=== PATIENT | female | born 1965 | race African-American/Black ===

== ENCOUNTER 2018-06-04 18:49 | Emergency (ER) | payer BC, OTHER ==
--- NOTE | 2018-06-04 20:55 | ER ---
Nurse's Notes [facility] Name: Ara Bolton Age: 53 yrs Sex: Female : 1965 Arrival Date: 06/04/2018 Time: 18:52 Bed 20 Private MD: Dell Little Diagnosis: Sinus Congestion Presentation: 06/04 19:05 Presenting complaint: Patient states: Reports dizziness with eye redness and sinus aj drainage since Saturday. Seen by PCP DX with allergies and referred to ENT. Seen ENT today. Patient states that she doesn't feel better and none of the doctors gave her anything. Transition of care: patient was not received from another setting of care. Onset of symptoms was May 30, 2018. Risk Assessment: Do you want to hurt yourself or someone else? Patient reports no desire to harm self or others. Initial Sepsis Screen: Does the patient meet any 2 criteria? No. Patient's initial sepsis screen is negative. Does the patient have a suspected source of infection? No. Patient's initial sepsis screen is negative. Care prior to arrival: None. 19:05 Method Of Arrival: Ambulatory aj 19:05 Acuity: RONNY 4 aj Triage Assessment: 19:09 Headache History: The patient has had previous headaches. General: Appears in no aj apparent distress. comfortable, Behavior is calm, cooperative, appropriate for age. Pain: Denies pain. EENT: Reports nasal congestion nasal discharge redness to eyes. Neuro: Level of Consciousness is awake, alert, obeys commands, Oriented to person, place, time, situation, Appropriate for age Reports headache. Respiratory: Airway is patent Respiratory effort is even, unlabored, Respiratory pattern is regular, symmetrical. Derm: Skin is intact, is healthy with good turgor, Skin is pink, warm \T\ dry. normal. 20:00 Pain: Pain currently is 0 out of 10 on a pain scale. Pain began gradually, Also bs1 complains of inability to work, inability to concentrate. 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 - Social history:: Smoking status: Patient/guardian denies using tobacco. - Ebola Screening: : Patient negative for fever greater than or equal to 101.5 degrees Fahrenheit, and additional compatible Ebola Virus Disease symptoms Patient denies exposure to infectious person Patient denies travel to an Ebola-affected area in the 21 days before illness onset No symptoms or risks identified at this time. Screenin:59 Abuse screen: Denies threats or abuse. Denies injuries from another. Nutritional aj screening: No deficits noted. Tuberculosis screening: No symptoms or risk factors identified. Fall Risk None identified. Assessment: 19:31 General: Appears in no apparent distress. uncomfortable, well groomed, Behavior is bs1 calm, cooperative, appropriate for age. Pain: Denies pain. Neuro: Level of Consciousness is awake, alert, obeys commands, Oriented to person, place, time, situation, Appropriate for age Pulp Screen Operator are equal bilaterally Reports dizziness. Cardiovascular: Denies chest pain, shortness of breath, Heart tones S1 S2 present Capillary refill < 3 seconds Patient's skin is warm and dry. Respiratory: Airway is patent Trachea midline Respiratory effort is even, unlabored, Respiratory pattern is regular, symmetrical, Breath sounds are clear bilaterally. GI: No signs and/or symptoms were reported involving the gastrointestinal system. : No signs and/or symptoms were reported regarding the genitourinary system. EENT: Reports nasal discharge. Derm: Skin is intact. Musculoskeletal: Circulation, motion, and sensation intact. Capillary refill < 3 seconds, Range of motion: intact in all extremities. 20:45 Reassessment: Patient appears in no apparent distress at this time. Patient and/or bs1 family updated on plan of care and expected duration. Pain level reassessed. Patient is alert, oriented x 3, equal unlabored respirations, skin warm/dry/pink. Informed of POC. Vital Signs: 19:09 BP 138 / 71; Pulse 89; Resp 20; Temp 97.8; Pulse Ox 98% on R/A; Weight 83.91 kg; Height aj 5 ft. 8 in. (172.72 cm); 20:10 BP 128 / 72; Pulse 81; Resp 18; Pulse Ox 99% on R/A; Pain 0/10; bs1 19:09 Body Mass Index 28.13 (83.91 kg, 172.72 cm) ED Course: 18:52 Patient arrived in ED. rg4 18:52 Dell Little MD is Private Physician. rg4 19:07 Triage completed. aj 19:09 Arm band placed on right wrist. Patient placed in an exam room. aj 19:18 Erin Stinson, RN is Primary Nurse. bs1 20:32 Tiffany Bañuelos FNP-C is PHCP. kb 20:33 Jordan Solis MD is Attending Physician. kb 20:59 Patient has correct armband on for positive identification. aj 20:59 No provider procedures requiring assistance completed. Patient did not have IV access aj during this emergency room visit. Administered Medications: No medications were administered Outcome: 20:55 Discharge ordered by MD. kb 20:59 Discharged to home ambulatory. aj 20:59 Condition: good 20:59 Discharge instructions given to patient, Instructed on discharge instructions, follow up and referral plans. Demonstrated understanding of instructions, follow-up care. 21:00 Patient left the ED. aj Signatures: Tiffany Bañuelos FNP-C FNP-Annette Romero, RN Beronica Chvaez 4 Erin Stinson, FELICITA RN bs1
--- NOTE | 2018-06-04 20:55 | EDPHYS ---
Physician Documentation [facility] Name: Ara Bolton Age: 53 yrs Sex: Female : 1965 Arrival Date: 06/04/2018 Time: 18:52 Bed 20 Private MD: Dell Little ED Physician Jordan Solis HPI: 06/04 21:01 This 53 yrs old Black Female presents to ER via Ambulatory with complaints of kb Dizziness, Sinus Pain. 21:01 The patient has experienced similar episodes in the past, chronically. The patient has kb been recently seen by a physician: Dr. Little 6 day(s) ago. 21:02 The patient is experiencing redness, The patient sustained None. to both eyes, caused kb by an unknown mechanism. Onset: The symptoms/episode began/occurred "a long time ago". Duration: the symptoms are intermittent. Aggravated by nothing. Alleviated by allergy or steroid eye drops. Associated signs and symptoms: Pertinent positives: dizziness, runny nose, Pertinent negatives: chills, ear ache, fever, headache. Patient does not utilize any form of vision correction. Severity of symptoms: At their worst the symptoms were moderate in the emergency department the symptoms have improved. The patient has been recently seen by a physician: an ENT specialist, earlier today, with similar presenting complaints. Pt states she has red eyes every morning and has to take eye drops to make the redness go away. States she takes so many drops and they don't drain so it builds up fluid so her head fills full. States the eye drops make the fluid drain through her nose, but then her nose runs. Also reports fullness in both ears. Went to Dr Little on Saturday and was given a steroid. Today went to ENT and was given magnesium to take. . 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 - Social history:: Smoking status: Patient/guardian denies using tobacco. - Ebola Screening: : Patient negative for fever greater than or equal to 101.5 degrees Fahrenheit, and additional compatible Ebola Virus Disease symptoms Patient denies exposure to infectious person Patient denies travel to an Ebola-affected area in the 21 days before illness onset No symptoms or risks identified at this time. ROS: 20:57 Constitutional: Negative for fever, chills, and weight loss, Cardiovascular: Negative kb for chest pain, palpitations, and edema, Respiratory: Negative for shortness of breath, cough, wheezing, and pleuritic chest pain, Abdomen/GI: Negative for abdominal pain, nausea, vomiting, diarrhea, and constipation, Back: Negative for injury and pain, : Negative for injury, bleeding, discharge, and swelling, MS/Extremity: Negative for injury and deformity, Skin: Negative for injury, rash, and discoloration. 20:57 ENT: Positive for sinus congestion. 20:57 Neuro: Positive for dizziness. 20:57 Eyes: Positive for redness. kb Exam: 20:57 Constitutional: This is a well developed, well nourished patient who is awake, alert, kb and in no acute distress. Head/Face: Normocephalic, atraumatic. Eyes: Pupils equal round and reactive to light, extra-ocular motions intact. Lids and lashes normal. Conjunctiva and sclera are non-icteric and not injected. Cornea within normal limits. Periorbital areas with no swelling, redness, or edema. ENT: Nares patent. No nasal discharge, no septal abnormalities noted. Tympanic membranes are normal and external auditory canals are clear. Oropharynx with no redness, swelling, or masses, exudates, or evidence of obstruction, uvula midline. Mucous membranes moist. Chest/axilla: Normal chest wall appearance and motion. Nontender with no deformity. No lesions are appreciated. Cardiovascular: Regular rate and rhythm with a normal S1 and S2. No gallops, murmurs, or rubs. Normal PMI, no JVD. No pulse deficits. Respiratory: Lungs have equal breath sounds bilaterally, clear to auscultation and percussion. No rales, rhonchi or wheezes noted. No increased work of breathing, no retractions or nasal flaring. Abdomen/GI: Soft, non-tender, with normal bowel sounds. No distension or tympany. No guarding or rebound. No evidence of tenderness throughout. Skin: Warm, dry with normal turgor. Normal color with no rashes, no lesions, and no evidence of cellulitis. MS/ Extremity: Pulses equal, no cyanosis. Neurovascular intact. Full, normal range of motion. Neuro: Awake and alert, GCS 15, oriented to person, place, time, and situation. Cranial nerves II-XII grossly intact. Motor strength 5/5 in all extremities. Sensory grossly intact. Cerebellar exam normal. Normal gait. Vital Signs: 19:09 BP 138 / 71; Pulse 89; Resp 20; Temp 97.8; Pulse Ox 98% on R/A; Weight 83.91 kg; Height aj 5 ft. 8 in. (172.72 cm); 20:10 BP 128 / 72; Pulse 81; Resp 18; Pulse Ox 99% on R/A; Pain 0/10; bs1 19:09 Body Mass Index 28.13 (83.91 kg, 172.72 cm) aj MDM: 20:33 Patient medically screened. kb 20:58 Data reviewed: vital signs, nurses notes. Data interpreted: Pulse oximetry: on room air kb is 98 %. Interpretation: normal. Counseling: I had a detailed discussion with the patient and/or guardian regarding: the historical points, exam findings, and any diagnostic results supporting the discharge/admit diagnosis, the need for outpatient follow up, an ENT specialist, an opthalmologist, to return to the emergency department if symptoms worsen or persist or if there are any questions or concerns that arise at home. Administered Medications: No medications were administered Disposition: 06/05 06:42 Co-signature as Attending Physician, Jordan Solis MD I agree with the assessment and tiffany plan of care. Disposition: 06/04/18 20:55 Discharged to Home. Impression: Sinus Congestion. - Condition is Stable. - Discharge Instructions: Sinus Rinse, [id number]. - Medication Reconciliation Form, Thank You Letter, Antibiotic Education, Prescription Opioid Use form. - Follow up: Emergency Department; When: As needed; Reason: Worsening of condition. Follow up: Private Physician; When: 2 - 3 days; Reason: Recheck today's complaints, Continuance of care, Re-evaluation by your physician. Signatures: Tiffany Bañuelos FNP-C FNP-Ckb Myers, Amanda, RN RN aj Anderson, Corey, MD MD cha Corrections: (The following items were deleted from the chart) 06/04 21:00 20:55 06/04/2018 20:55 Discharged to Home. Impression: Sinus Congestion. Condition is aj Stable. Forms are Medication Reconciliation Form, Thank You Letter, Antibiotic Education, Prescription Opioid Use. Follow up: Emergency Department; When: As needed; Reason: Worsening of condition. Follow up: Private Physician; When: 2 - 3 days; Reason: Recheck today's complaints, Continuance of care, Re-evaluation by your physician. kb
== END 2018-06-04 21:00 | disposition home or self-care (01) ==
LOC: ER 18:49
DX: R09.81 Nasal congestion (principal); I10 Essential (primary) hypertension; J30.2 Other seasonal allergic rhinitis
CPT/HCPCS: 99281

== ENCOUNTER 2019-01-13 17:39 | Emergency (ER) | payer BC ==
--- OUTSIDE RECORDS SUMMARY | 2019-01-13 17:40 | XMS REPORT ---
:1965 [facility] Address [address] [place] [address] Care Team Providers Name Role Phone Unavailable Unavailable Unavailable Payers Payer Name Policy Type Policy Number Effective Date Expiration Date Problems This patient has no known problems. Allergies, Adverse Reactions, Alerts This patient has no known allergies or adverse reactions. Medications This patient has no known medications.
--- NOTE | 2019-01-13 20:40 | ER ---
Nurse's Notes [facility] Name: Ara Bolton Age: 53 yrs Sex: Female : 1965 Arrival Date: 01/13/2019 Time: 17:39 Bed Treatment Private MD: Dell Little Diagnosis: Gout;Pain in left wrist Presentation: 01/13 17:56 Presenting complaint: Patient states: yesterday my L hand started to swell and its hj getting bigger, pain is 10/10; took tylenol/ advil around 3pm; denies trauma to the area;. Transition of care: patient was not received from another setting of care. Onset of symptoms was January 13, 2019. Risk Assessment: Do you want to hurt yourself or someone else? Patient reports no desire to harm self or others. Initial Sepsis Screen: Does the patient meet any 2 criteria? No. Patient's initial sepsis screen is negative. Does the patient have a suspected source of infection? No. Patient's initial sepsis screen is negative. Care prior to arrival: None. 17:56 Method Of Arrival: Ambulatory 17:56 Acuity: RONNY 4 Triage Assessment: 17:58 General: Appears in no apparent distress. uncomfortable, Behavior is calm, cooperative, hj appropriate for age. Pain: Complains of pain in left hand. 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 - Social history:: Smoking status: Patient/guardian denies using tobacco, Patient/guardian denies using alcohol. - Ebola Screening: : Patient negative for fever greater than or equal to 101.5 degrees Fahrenheit, and additional compatible Ebola Virus Disease symptoms Patient denies exposure to infectious person Patient denies travel to an Ebola-affected area in the 21 days before illness onset. Screenin:59 Abuse screen: Denies threats or abuse. Denies injuries from another. Nutritional hj screening: No deficits noted. Tuberculosis screening: No symptoms or risk factors identified. Fall Risk None identified. Assessment: 19:46 General: Appears in no apparent distress. uncomfortable, Behavior is calm, cooperative, rr5 appropriate for age. Pain: Complains of pain in left hand Pain does not radiate. Pain currently is 10 out of 10 on a pain scale. Quality of pain is described as aching, Pain began gradually, Is intermittent. Neuro: Level of Consciousness is awake, alert, obeys commands, Oriented to person, place, time, situation, Appropriate for age. Cardiovascular: Capillary refill < 3 seconds Patient's skin is warm and dry. Respiratory: Airway is patent Respiratory effort is even, unlabored, Respiratory pattern is regular, symmetrical. GI: No signs and/or symptoms were reported involving the gastrointestinal system. : No signs and/or symptoms were reported regarding the genitourinary system. EENT: No signs and/or symptoms were reported regarding the EENT system. 20:37 Reassessment: Patient appears in no apparent distress at this time. Patient is alert, rr5 oriented x 3, equal unlabored respirations, skin warm/dry/pink. medication given for the pain. 21:25 Reassessment: Patient appears in no apparent distress at this time. Patient is alert, rr5 oriented x 3, equal unlabored respirations, skin warm/dry/pink. discharge instruction given and explained without complaints made. Patient states feeling better. Patient states symptoms have improved. Vital Signs: 17:59 BP 128 / 93; Pulse 69; Resp 18; Temp 97.4(TE); Pulse Ox 100% on R/A; Weight 81.65 kg; hj Height 5 ft. 8 in. (172.72 cm); Pain 10/10; 19:30 BP 117 / 82; Pulse 76; Resp 16; Temp 98.3; Pulse Ox 100% ; rr5 20:20 BP 119 / 76; Pulse 71; Resp 17; Pulse Ox 98% ; rr5 21:20 BP 115 / 80; Pulse 70; Resp 17; Pulse Ox 99% ; rr5 17:59 Body Mass Index 27.37 (81.65 kg, 172.72 cm) ED Course: 17:39 Patient arrived in ED. as 17:39 Dell Little MD is Private Physician. as 17:57 Triage completed. hj 17:59 Arm band placed on right wrist. hj 18:00 Patient has correct armband on for positive identification. Bed in low position. Call hj light in reach. Side rails up X 1. Adult w/ patient. 19:45 Rafiq Baum, RN is Primary Nurse. rr5 20:05 Pablo Waller MD is Attending Physician. ps1 20:38 Dell Little MD is Referral Physician. ps1 21:30 No provider procedures requiring assistance completed. Patient did not have IV access rr5 during this emergency room visit. Administered Medications: 20:35 Drug: Decadron 10 mg Route: IM; Site: left gluteus; rr5 21:26 Follow up: Response: No adverse reaction rr5 20:37 Drug: TORadol 30 mg Route: IM; Site: right gluteus; rr5 21:26 Follow up: Response: No adverse reaction rr5 Outcome: 20:39 Discharge ordered by MD. ps1 21:30 Discharged to home ambulatory. rr5 21:30 Condition: stable 21:30 Discharge instructions given to patient, Instructed on discharge instructions, follow up and referral plans. medication usage, Demonstrated understanding of instructions, follow-up care, medications, Prescriptions given X 2. 21:36 Patient left the ED. rr5 Signatures: Radha Solano Henry, RN RN Pablo Waller MD MD ps1 Rafiq Baum, FELICITA RN rr5 Corrections: (The following items were deleted from the chart) 18:00 17:59 Pulse 69bpm; Resp 18bpm; Pulse Ox 100% RA; Temp 97.4F Temporal; 81.65 kg; Height hj 5 ft. 8 in.; BMI: 27.3; Pain 10/10; hj
--- NOTE | 2019-01-13 20:40 | EDPHYS ---
Physician Documentation [facility] Name: Ara Bolton Age: 53 yrs Sex: Female : 1965 Arrival Date: 01/13/2019 Time: 17:39 Bed Treatment Private MD: Dell Little ED Physician Pablo Waller HPI: 01/13 20:34 This 53 yrs old Black Female presents to ER via Ambulatory with complaints of Hand ps1 Swelling. 20:34 patient presenting with 2 days of left hand swelling. Pain is localized to radial ps1 aspect of wrist and hand. Pain rated as moderate to severe with palpation. Appears c/w gouty arthritis. States that she does not drink but does eat red meat. Additionally has been undergoing laser fat treatment of the abdomen. No fever, chills, or erythematous changes c/w cellulitis. 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 - Social history:: Smoking status: Patient/guardian denies using tobacco, Patient/guardian denies using alcohol. - Ebola Screening: : Patient negative for fever greater than or equal to 101.5 degrees Fahrenheit, and additional compatible Ebola Virus Disease symptoms Patient denies exposure to infectious person Patient denies travel to an Ebola-affected area in the 21 days before illness onset. ROS: 20:34 Constitutional: Negative for fever, chills, and weight loss, Eyes: Negative for injury, ps1 pain, redness, and discharge, Cardiovascular: Negative for chest pain, palpitations, and edema, Respiratory: Negative for shortness of breath, cough, wheezing, and pleuritic chest pain, Abdomen/GI: Negative for abdominal pain, nausea, vomiting, diarrhea, and constipation, Neuro: Negative for headache, weakness, numbness, tingling, and seizure, Psych: Negative for depression, anxiety, suicide ideation, homicidal ideation, and hallucinations. 20:34 MS/extremity: Positive for pain, swelling, tenderness. Exam: 20:34 Constitutional: This is a well developed, well nourished patient who is awake, alert, ps1 and in no acute distress. Head/Face: Normocephalic, atraumatic. Eyes: Pupils equal round and reactive to light, extra-ocular motions intact. Lids and lashes normal. Conjunctiva and sclera are non-icteric and not injected. Neck: Trachea midline, no thyromegaly or masses palpated, and no cervical lymphadenopathy. Supple, full range of motion without nuchal rigidity, or vertebral point tenderness. No Meningismus. Chest/axilla: Normal chest wall appearance and motion. Nontender with no deformity. No lesions are appreciated. Cardiovascular: Regular rate and rhythm. No gallops, murmurs, or rubs. Normal PMI, no JVD. No pulse deficits. Respiratory: Lungs have equal breath sounds bilaterally, clear to auscultation and percussion. No rales, rhonchi or wheezes noted. No increased work of breathing, no retractions or nasal flaring. Skin: Warm, dry with normal turgor. Normal color with no rashes, no lesions, and no evidence of cellulitis. 20:34 Skin: Appearance: normal except for affected area, Color: erythematous, Temperature: warm, swelling, noted on the left hand. Vital Signs: 17:59 BP 128 / 93; Pulse 69; Resp 18; Temp 97.4(TE); Pulse Ox 100% on R/A; Weight 81.65 kg; hj Height 5 ft. 8 in. (172.72 cm); Pain 10/10; 19:30 BP 117 / 82; Pulse 76; Resp 16; Temp 98.3; Pulse Ox 100% ; rr5 20:20 BP 119 / 76; Pulse 71; Resp 17; Pulse Ox 98% ; rr5 21:20 BP 115 / 80; Pulse 70; Resp 17; Pulse Ox 99% ; rr5 17:59 Body Mass Index 27.37 (81.65 kg, 172.72 cm) MDM: 20:17 Patient medically screened. ps1 01/13 19:33 Order name: Urine Dipstick--Ancillary (enter results); Complete Time: 21:25 ar5 01/13 19:33 Order name: Urine --Ancillary (enter results); Complete Time: 21:25 ar5 01/13 18:01 Order name: Urine Dipstick-Ancillary (obtain specimen); Complete Time: 19:45 hj 01/13 18:01 Order name: Urine Test (obtain specimen); Complete Time: 19:45 Administered Medications: 20:35 Drug: Decadron 10 mg Route: IM; Site: left gluteus; rr5 21:26 Follow up: Response: No adverse reaction rr5 20:37 Drug: TORadol 30 mg Route: IM; Site: right gluteus; rr5 21:26 Follow up: Response: No adverse reaction rr5 Disposition: 01/13/19 20:39 Discharged to Home. Impression: Gout, Pain in left wrist. - Condition is Stable. - Discharge Instructions: Joint Pain, Gout. - Prescriptions for indomethacin 50 mg Oral capsule - take 1 capsule by ORAL route 3 times per day with food; 21 capsule. Medrol ([place]) 4 mg Oral Tablets, Dose Pack - take 1 tablet by ORAL route as directed - follow package instructions; 1 packet. - Medication Reconciliation Form, Thank You Letter, Antibiotic Education, Prescription Opioid Use form. - Follow up: Dell Little MD; When: 48 Hours; Reason: Recheck today's complaints, Continuance of care. Follow up: Emergency Department; When: As needed; Reason: Fever > 102 F, Worsening of condition. - Problem is new. - Symptoms are unchanged. Signatures: Dispatcher [employer] EDMS Erik Rosenthal RN RN hj Pablo Waller MD MD ps1 Rafiq Baum RN RN rr5 Corrections: (The following items were deleted from the chart) 20:38 20:34 patient presenting with 2 days of right hand swelling. Pain is localized to ulnar ps1 aspect of wrist and hand. Pain rated as moderate to severe with palpation. Appears c/w gouty arthritis. States that she does not drink but does eat red meat. Additionally has been undergoing laser fat treatment of the abdomen. No fever, chills, or erythematous changes c/w cellulitis. ps1 21:36 20:39 01/13/2019 20:39 Discharged to Home. Impression: Gout; Pain in left wrist. rr5 Condition is Stable. Forms are Medication Reconciliation Form, Thank You Letter, Antibiotic Education, Prescription Opioid Use. Follow up: Dell Little; When: 48 Hours; Reason: Recheck today's complaints, Continuance of care. Follow up: Emergency Department; When: As needed; Reason: Fever > 102 F, Worsening of condition. Problem is new. Symptoms are unchanged. ps1
[2019-01-13] MEDS ORDERED: DEXAMETHASONE 10 MG/ML VIAL ONE (20:46)
[2019-01-13] MEDS ORDERED: KETOROLAC 30 MG/ML INJ ONE (20:47)
[2019-01-13 21:14] LABS: Urine Blood 1+ (NEG); Urine Glucose NEGATIVE (NEG); Urine Protein NEGATIVE (NEG); Urine Specific Gravity 1.015 (1.005-1.030)
== END 2019-01-13 21:36 | disposition home or self-care (01) ==
LOC: ER 17:39
DX: M10.9 Gout, unspecified (principal); M25.532 Pain in left wrist; I10 Essential (primary) hypertension
CPT/HCPCS: 81003; 81025; 96372; 99283; J1100

== ENCOUNTER 2019-10-27 08:00 | Emergency (ER) | payer BC ==
--- OUTSIDE RECORDS SUMMARY | 2019-10-27 08:02 | XMS REPORT ---
:1965 Author Organization [facility] Address [address] [place] [address] Care Team Providers Name Role Phone Unavailable Unavailable Unavailable Payers Payer Name Policy Type Policy Number Effective Date Expiration Date Problems This patient has no known problems. Allergies, Adverse Reactions, Alerts This patient has no known allergies or adverse reactions. Medications This patient has no known medications.
[2019-10-27] MEDS ORDERED: KETOROLAC 30 MG/ML INJ ONE (08:33)
[2019-10-27] MEDS ORDERED: DIPHENHYDRAMINE 50 MG/ML VIAL ONE (08:33)
[2019-10-27] MEDS ORDERED: METOCLOPRAMIDE 10 MG/2mL INJ ONE (08:33)
[2019-10-27] MEDS ORDERED: ONDANSETRON 4 MG/2 ML VIAL ONE (08:33)
--- NOTE | 2019-10-27 08:55 | RAD REPORT ---
EXAM DESCRIPTION: CT - Head C Spine Mpr Wo Con - 10/27/2019 8:42 am CLINICAL HISTORY: Left arm radiculopathy. Head and neck pain COMPARISON: None. TECHNIQUE: Computed axial tomography of the head and cervical spine was obtained. Sagittal and coronal reconstruction was performed. All CT scans are performed using dose optimization technique as appropriate and may include automated exposure control or mA/KV adjustment according to patient size. FINDINGS: An intracranial bleed is not seen. The ventricles are normal in caliber. An extra-axial fl uid collection is not noted.Fluid within the visualized sinuses and mastoids is not seen A cervical fracture is not visualized. No dislocation is noted. There is loss of the normal lordosis of the cervical spine perhaps secondary to muscle spasm. A large bulging disc/disc herniation is not seen although evaluation is limited on CAT scan. IMPRESSION: No acute intracranial abnormality is seen. A cervical fracture is not visualized. If the patient continues to have symptoms to suggest intracra nial /spinal cord/ spinal canal pathology then MRI would be recommended
[2019-10-27 08:58] LABS: BUN Blood Urea Nitrogen 17 mg/dL (7-18); Bicarbonate 25 mmol/L (21-32); Glucose Level 98 mg/dL (74-106); Potassium 3.7 mmol/L (3.5-5.1); Sodium Level 140 mmol/L (136-145)
[2019-10-27 09:00] LABS: Basophils % 0.6 % (0-1.3); Hematocrit 39.5 % (36.0-45.0); Lymphocytes % 16.3 % (15.3-44.8); MPV 9.8 fL (7.6-11.3); RBC Red Blood Cell Count 5.03 M/uL (3.86-4.86)
--- NOTE | 2019-10-27 09:59 | ER ---
Nurse's Notes [facility] Name: Ara Bolton Age: 54 yrs Sex: Female : 1965 Arrival Date: 10/27/2019 Time: 08:02 Bed 5 Private MD: Dell Little Diagnosis: Headache;Left Upper Extremity Pain Presentation: 10/27 08:10 Presenting complaint: Patient states: migraine started 0300 this morning, vomited this iw morning on way to work, headache is at top of head and radiates to neck, also has pain to left arm for a few days pain is constant from bicep to hand, +hx of migraines. Transition of care: patient was not received from another setting of care. Onset of symptoms was October 27, 2019. Risk Assessment: Do you want to hurt yourself or someone else? Patient reports no desire to harm self or others. Initial Sepsis Screen: Does the patient meet any 2 criteria? No. Patient's initial sepsis screen is negative. Does the patient have a suspected source of infection? No. Patient's initial sepsis screen is negative. Care prior to arrival: None. 08:10 Method Of Arrival: Ambulatory iw 08:10 Acuity: RONNY 3 iw Triage Assessment: 09:36 Headache History: The patient has had previous headaches. General: Appears in no mg2 apparent distress. comfortable, Behavior is calm, cooperative. Pain: Pain began gradually, Also complains of no other associated symptoms. Pain: Complains of pain in head. 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 - Social history:: Smoking status: Patient/guardian denies using tobacco. - Ebola Screening: : Patient negative for fever greater than or equal to 101.5 degrees Fahrenheit, and additional compatible Ebola Virus Disease symptoms Patient denies exposure to infectious person Patient denies travel to an Ebola-affected area in the 21 days before illness onset No symptoms or risks identified at this time. Screenin:20 Abuse screen: Denies threats or abuse. Nutritional screening: No deficits noted. aa5 Tuberculosis screening: No symptoms or risk factors identified. Fall Risk None identified. Assessment: 08:15 General: Appears in no apparent distress. Behavior is calm, cooperative. Pain: Pain hb currently is 10 out of 10 on a pain scale. Neuro: Level of Consciousness is awake, alert, obeys commands, Oriented to person, place, time, situation, Reports headache in right. Cardiovascular: Capillary refill < 3 seconds Patient's skin is warm and dry. Respiratory: Airway is patent Respiratory effort is even, unlabored, Respiratory pattern is regular, symmetrical. GI: No signs and/or symptoms were reported involving the gastrointestinal system. : No signs and/or symptoms were reported regarding the genitourinary system. EENT: No signs and/or symptoms were reported regarding the EENT system. Derm: Skin is pink, warm \T\ dry. Musculoskeletal: No signs and/or symptoms reported regarding the musculoskeletal system. 08:20 General: Appears uncomfortable, Behavior is calm, cooperative. Pain: Complains of pain aa5 in top of head and left arm Pain radiates to right base of the skull Pain currently is 8 out of 10 on a pain scale. Quality of pain is described as aching, throbbing, Is continuous. 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 Speech is normal, Facial symmetry appears normal, Pupils are PERRLA, Reports headache. Cardiovascular: Heart tones S1 S2 present Rhythm is regular. Respiratory: Airway is patent Respiratory effort is even, unlabored, Respiratory pattern is regular, symmetrical. GI: Abdomen is round Bowel sounds present X 4 quads. Abd is soft and non tender X 4 quads. Reports nausea. : No signs and/or symptoms were reported regarding the genitourinary system. EENT: No signs and/or symptoms were reported regarding the EENT system. Derm: Skin is dry, Skin is normal, Skin temperature is warm. Musculoskeletal: Range of motion: intact in all extremities. 08:45 Reassessment: Pt back from CT . aa5 09:00 Reassessment: Patient appears in no apparent distress at this time. Patient and/or hb family updated on plan of care and expected duration. Pain level reassessed. Patient is alert, oriented x 3, equal unlabored respirations, skin warm/dry/pink. 09:36 Reassessment: Patient appears in no apparent distress at this time. Patient and/or mg2 family updated on plan of care and expected duration. Pain level reassessed. Patient is alert, oriented x 3, equal unlabored respirations, skin warm/dry/pink. Vital Signs: 08:14 BP 144 / 89; Pulse 78; Resp 16; Temp 98.3; Pulse Ox 100% on R/A; Weight 77.11 kg; iw Height 5 ft. 8 in. (172.72 cm); Pain 8/10; 09:00 BP 136 / 86; Pulse 75; Resp 14; Pulse Ox 100% on R/A; hb 10:07 BP 129 / 78; Pulse 88; Resp 18; Temp 98; Pulse Ox 100% on R/A; Pain 2/10; mg2 08:14 Body Mass Index 25.85 (77.11 kg, 172.72 cm) iw ED Course: 08:02 Patient arrived in ED. ag5 08:02 Dell Little MD is Private Physician. ag5 08:03 Esdras Vargas MD is Attending Physician. kdr 08:08 Ebony Cheng, FELICITA is Primary Nurse. aa5 08:13 Triage completed. iw 08:14 Arm band placed on. iw 08:20 Patient has correct armband on for positive identification. Bed in low position. Call aa5 light in reach. Side rails up X 1. Pulse ox on. NIBP on. 08:28 Initial lab(s) drawn, by me, sent to lab. Inserted saline lock: 20 gauge in right aa5 antecubital area, using aseptic technique. Blood collected. 08:42 CT Head C Spine In Process Unspecified. EDMS 09:37 No provider procedures requiring assistance completed. mg2 09:58 Dell Little MD is Referral Physician. kdr 10:08 IV discontinued, intact, bleeding controlled, No redness/swelling at site. Pressure mg2 dressing applied. Administered Medications: 08:37 Drug: TORadol - Ketorolac 15 mg Route: IVP; Site: right antecubital; hb 09:22 Follow up: Response: No adverse reaction mg2 08:37 Drug: Benadryl 25 mg Route: IVP; Site: right antecubital; hb 09:21 Follow up: Response: No adverse reaction mg2 08:37 Drug: Reglan 10 mg Route: IVP; Site: right antecubital; hb 09:20 Follow up: Response: No adverse reaction mg2 08:37 Drug: Decadron - Dexamethasone 10 mg Route: IVP; Site: right antecubital; hb 09:20 Follow up: Response: No adverse reaction mg2 Outcome: 09:59 Discharge ordered by . kdr 10:07 Discharged to home ambulatory. mg2 10:07 Condition: stable 10:07 Discharge instructions given to patient, Instructed on discharge instructions, follow up and referral plans. medication usage, Demonstrated understanding of instructions, follow-up care, medications, Prescriptions given X 2. 10:08 Patient left the ED. mg2 Signatures: Dispatcher [employer] EDMS Esdras Vargas MD MD kdr Yudy Garcia RN RN Ebony Cheng RN RN aa5 Yesica Nunez RN RN hb Gardose, Michele, RN RN mg2 Raquel Dye ag5
--- NOTE | 2019-10-27 10:00 | EDPHYS ---
Physician Documentation [facility] Name: Ara Bolton Age: 54 yrs Sex: Female : 1965 Arrival Date: 10/27/2019 Time: 08:02 Bed 5 Private MD: Dell Little ED Physician Esdras Vargas HPI: 10/27 08:22 This 54 yrs old Black Female presents to ER via Ambulatory with complaints of Headache, kdr Arm Pain, Vomiting. 08:22 The patient complains of pain to the left frontal area, left side of the back of head, kdr left occipital area, left base of the skull, right frontal area, right side of the back of head, right occipital area and right base of the skull. The patient describes the headache as aching, constant, unrelenting. Onset: The symptoms/episode began/occurred suddenly, today, at 03:30. Associated signs and symptoms: Pertinent positives: nausea, vomiting, Pertinent negatives: dizziness, fever, malaise, neck stiffness, paresthesias, Photophobia sinus congestion, sinus tenderness, vision changes, vision loss, weakness, vertigo. Severity of symptoms: At its worst the pain was moderate, "similar to past headaches", in the emergency department the pain is unchanged. Headache History: The patient has had previous headaches and this one is similar to previous episodes, and this one is more severe than previous episodes. The symptoms are alleviated by nothing. the symptoms are aggravated by nothing. The patient has experienced similar episodes in the past, multiple times, but today's symptoms are worse. The patient has not recently seen a physician. 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 - Social history:: Smoking status: Patient/guardian denies using tobacco. - Ebola Screening: : Patient negative for fever greater than or equal to 101.5 degrees Fahrenheit, and additional compatible Ebola Virus Disease symptoms Patient denies exposure to infectious person Patient denies travel to an Ebola-affected area in the 21 days before illness onset No symptoms or risks identified at this time. ROS: 08:22 Constitutional: Negative for fever, chills, and weight loss, Eyes: Negative for injury, kdr pain, redness, and discharge, ENT: Negative for injury, pain, and discharge, Neck: Negative for injury, pain, and swelling, Cardiovascular: Negative for chest pain, palpitations, and edema, Respiratory: Negative for shortness of breath, cough, wheezing, and pleuritic chest pain, Abdomen/GI: Negative for abdominal pain, nausea, vomiting, diarrhea, and constipation, Back: Negative for injury and pain, : Negative for injury, bleeding, discharge, and swelling, MS/Extremity: Negative for injury and deformity - she does have pain in the anterior left arm from the nicep to the volar aspect of the wrist and palm Skin: Negative for injury, rash, and discoloration, Neuro: Negative for headache, weakness, numbness, tingling, and seizure activity. Psych: Negative for depression, anxiety, suicide ideation, homicidal ideation, and hallucinations, Allergy/Immunology: Negative for hives, rash, and allergies, Endocrine: Negative for neck swelling, polydipsia, polyuria, polyphagia, and marked weight changes, Hematologic/Lymphatic: Negative for swollen nodes, abnormal bleeding, and unusual bruising. Exam: 08:22 Constitutional: This is a well developed, well nourished patient who is awake, alert, kdr and in no acute distress. Head/Face: Normocephalic, atraumatic. Eyes: Pupils equal round and reactive to light, extra-ocular motions intact. Lids and lashes normal. Conjunctiva and sclera are non-icteric and not injected. Cornea within normal limits. Periorbital areas with no swelling, redness, or edema. Neck: Trachea midline, no thyromegaly or masses palpated, and no cervical lymphadenopathy. Supple, full range of motion without nuchal rigidity, or vertebral point tenderness. No Meningismus. Chest/axilla: Normal chest wall appearance and motion. Nontender with no deformity. No lesions are appreciated. Cardiovascular: Regular rate and rhythm with a normal S1 and S2. No gallops, murmurs, or rubs. Normal PMI, no JVD. No pulse deficits. Respiratory: Lungs have equal breath sounds bilaterally, clear to auscultation and percussion. No rales, rhonchi or wheezes noted. No increased work of breathing, no retractions or nasal flaring. Abdomen/GI: Soft, non-tender, with normal bowel sounds. No distension or tympany. No guarding or rebound. No evidence of tenderness throughout. Back: No spinal tenderness. No costovertebral tenderness. Full range of motion. Skin: Warm, dry with normal turgor. Normal color with no rashes, no lesions, and no evidence of cellulitis. MS/ Extremity: Pulses equal, no cyanosis. Neurovascular intact. Full, normal range of motion. Neuro: Awake and alert, GCS 15, oriented to person, place, time, and situation. Cranial nerves II-XII grossly intact. Motor strength 5/5 in all extremities. Sensory grossly intact. Cerebellar exam normal. Normal gait. Psych: Awake, alert, with orientation to person, place and time. Behavior, mood, and affect are within normal limits. Vital Signs: 08:14 BP 144 / 89; Pulse 78; Resp 16; Temp 98.3; Pulse Ox 100% on R/A; Weight 77.11 kg; iw Height 5 ft. 8 in. (172.72 cm); Pain 8/10; 09:00 BP 136 / 86; Pulse 75; Resp 14; Pulse Ox 100% on R/A; hb 10:07 BP 129 / 78; Pulse 88; Resp 18; Temp 98; Pulse Ox 100% on R/A; Pain 2/10; mg2 08:14 Body Mass Index 25.85 (77.11 kg, 172.72 cm) iw MDM: 08:22 Data reviewed: vital signs, nurses notes, lab test result(s), radiologic studies. kdr Counseling: I had a detailed discussion with the patient and/or guardian regarding: the historical points, exam findings, and any diagnostic results supporting the discharge/admit diagnosis, lab results, radiology results, the need for outpatient follow up. 09:59 Patient medically screened. kdr 10:02 ED course: The patient was feeling better on re-evaluation (4) as opposed to at arrival kdr (8) . No nuchal rigidity, or any other suggestion of meningitis. Left arm pain and no weakness or numbness in the arm. No other focal neurological deficits. 10/27 08:19 Order name: CBC with Diff; Complete Time: 09:21 kdr 10/27 08:19 Order name: Chem 7; Complete Time: :21 kdr 10/27 08:19 Order name: CT Head C Spine; Complete Time: 09:21 kdr Administered Medications: 08:37 Drug: TORadol - Ketorolac 15 mg Route: IVP; Site: right antecubital; hb 09:22 Follow up: Response: No adverse reaction mg2 08:37 Drug: Benadryl 25 mg Route: IVP; Site: right antecubital; hb 09:21 Follow up: Response: No adverse reaction mg2 08:37 Drug: Reglan 10 mg Route: IVP; Site: right antecubital; hb 09:20 Follow up: Response: No adverse reaction mg2 08:37 Drug: Decadron - Dexamethasone 10 mg Route: IVP; Site: right antecubital; hb 09:20 Follow up: Response: No adverse reaction mg2 Disposition: 10/27/19 09:59 Discharged to Home. Impression: Headache, Left Upper Extremity Pain. - Condition is Stable. - Discharge Instructions: General Headache Without Cause, Neuropathic Pain, Migraine Headache, [id number]. - Prescriptions for Ibuprofen 600 mg Oral Tablet - take 1 tablet by ORAL route every 6 hours As needed take with food; 30 tablet. Tramadol 50 mg Oral Tablet - take 1 tablet by ORAL route every 8 hours as needed; 12 tablet. - Medication Reconciliation Form, Thank You Letter, Prescription Opioid Use, Work release form form. - Follow up: Dell Little MD; When: 2 - 3 days; Reason: If symptoms return, Further diagnostic work-up, Recheck today's complaints, Continuance of care, Re-evaluation by your physician. - Problem is new. - Symptoms have improved. Signatures: Dispatcher [employer] EDMS Esdras Vargas MD MD [facility] Yudy Garcia RN RN Yesica Nunez RN RN Suman Padilla RN RN mg2 Corrections: (The following items were deleted from the chart) 10:08 09:59 10/27/2019 09:59 Discharged to Home. Impression: Headache; Left Upper Extremity mg2 Pain. Condition is Stable. Forms are Medication Reconciliation Form, Thank You Letter, Antibiotic Education, Prescription Opioid Use. Follow up: Dell Little; When: 2 - 3 days; Reason: If symptoms return, Further diagnostic work-up, Recheck today's complaints, Continuance of care, Re-evaluation by your physician. Problem is new. Symptoms have improved. kdr
[2019-10-27 10:43] VITALS: O2SAT 100
[2019-10-27 10:45] VITALS: BP 129/78; TEMP 98
== END 2019-10-27 10:08 | disposition home or self-care (01) ==
LOC: ER 08:00
DX: R51 Headache (principal); M79.602 Pain in left arm; I10 Essential (primary) hypertension
CPT/HCPCS: 85025; 80048; 36415; 70450; 72125; 96375; 96374; 99284; J2765; J1200; J2405